=== PATIENT | female | born 1980 | race African-American/Black ===

== ENCOUNTER 2016-11-05 19:51 | Emergency (ER) | payer OTHER ==
--- NOTE | ~2016-11-05 | CT71 ---
[facility] A Service of [facility] RADIOLOGY TEXT RESULTS PATIENT: KWASI SWEENEY LOCATION: SED : 76 UNIT #: [id number] AGE: [address]: Shilpi Hayes [employer] FINANCIAL DEVELOPER SEX: F ORDER DR: [id number] [address] [id number] MR#: [id number] Acc #: [id number] NAME: KWASI SWEENEY : 1980 SEX: F STUDY DATE/TIME: 11/05/2016 20:38 UNIT: SED ROOM: STUDY DESCRIPTION: CT Head Wo Contrast Attending Physician: Shilpi Hayes A.P.R.N. Ordering Physician: Shilpi Hayes A.P.R.N. Primary Care Physician: Marlon aPula M.D. MEDICAL IMAGING REPORT This report is preliminary unless electronic signature is present. EXAM CT brain without contrast HISTORY Right side headache for 2 weeks. TECHNIQUE Axial noncontrast images were obtained from the skull base to the vertex. This CT exam was performed with one or more of the following radiation dose reduction techniques: Automatic exposure control, adjustment of mA and/or kV according to patient size, and iterative reconstruction. FINDINGS Ventricular size and configuration are normal. There is no evidence of acute infarct or hemorrhage. There are no extraaxial fluid collections. No mass lesion or mass effect is seen. There are no skull fractures. IMPRESSION Normal noncontrast head CT. Dictated by... Neville Kat M.D. THIS IS AN ELECTRONICALLY VERIFIED REPORT Neville Kat M.D. at 11/06/2016 2:02 PM DFL/marshal TD: 11/05/2016 23:20 JOB #: [id number] [facility] A Service of [facility] RADIOLOGY TEXT RESULTS PATIENT: KWASI SWEENEY LOCATION: SED : 76 UNIT #: [id number] AGE: [address]: Shilpi Hayes APRN FINANCIAL DEVELOPER SEX: F ORDER DR: MEDICAL IMAGING REPORT Page 1 of 1
[2016-11-05] MEDS ORDERED: ACETAMINOPHEN PO (20:05)
[2016-11-05] MEDS ORDERED: IBUPROFEN PO (20:05)
[2016-11-05] MEDS ORDERED: EXCEDRIN MIGRA1 EACH (20:05)
== END 2016-11-05 22:23 | disposition home or self-care (01) ==
LOC: SED 19:51
DX: R51 Headache (principal); R03.0 Elevated blood-pressure reading, without diagnosis of hypertension
CPT/HCPCS: 70450; 96361; 96374; 96375; 99284; J1200; J1885; J2765; J2930